=== PATIENT | female | born 1955 | race Caucasian/White ===

== ENCOUNTER 2020-04-03 08:44 | Outpatient (REF) | payer MEDICARE, OTHER, SELFPAY ==
--- NOTE | 2020-04-03 | PFT_ITS ---
Forced vital capacity is moderately reduced. FEV1 and [id number] and MVV are markedly reduced. Post bronchodilator therapy, there is a significant improvement in all flow volumes. Total lung capacity and residual volume are markedly increased suggesting air trapping. Diffusion capacity normal. CONCLUSION: Severe obstructive airway disorder. With partial reversibility after bronchodilator therapy. These findings are consistent with bronchial asthma. Clinical correlation is recommended. MD MILAN Rodriguez/MODL / [id number]
== END 2020-04-03 08:45 | disposition home or self-care (01) ==
LOC: HO.RESP 08:44
PROVIDERS: Visit Provider Surgery
DX: Z01.818 Encounter for other preprocedural examination (principal); J45.41 Moderate persistent asthma with (acute) exacerbation
CPT/HCPCS: 94060; 94727; 94729

== ENCOUNTER → 2020-04-15 08:18 | Outpatient (BNVA) | payer MEDICARE, OTHER, SELFPAY | PROVIDERS: PCP Nurse Practitioner Family; Visit Provider Dietitian, Registered | DX: Z76.89 Persons encountering health services in other specified circumstances (principal) ==

== ENCOUNTER → 2020-04-22 09:37 | Outpatient (BNVA) | payer MEDICARE, OTHER, SELFPAY | PROVIDERS: PCP Nurse Practitioner Family; Referring Provider Family Medicine Geriatric Medicine; Visit Provider Surgery | DX: Z76.89 Persons encountering health services in other specified circumstances (principal) ==

== ENCOUNTER → 2020-05-06 08:08 | Outpatient (BNVA) | payer MEDICARE, OTHER, SELFPAY | PROVIDERS: PCP Internal Medicine; Visit Provider Dietitian, Registered | DX: Z76.89 Persons encountering health services in other specified circumstances (principal) ==

== ENCOUNTER → 2020-05-09 07:19 | Outpatient (BNVA) | payer MEDICARE, OTHER, SELFPAY | PROVIDERS: Visit Provider Surgery | DX: Z01.818 Encounter for other preprocedural examination (principal); E66.9 Obesity, unspecified; Z68.37 Body mass index [BMI] 37.0-37.9, adult; K21.9 Gastro-esophageal reflux disease without esophagitis; I10 Essential (primary) hypertension | CPT/HCPCS: 99212 ==

== ENCOUNTER 2020-05-10 09:00 | Outpatient (REF) | payer MEDICARE, OTHER, SELFPAY ==
[2020-05-10 09:51] LABS: MANUAL DIFF FLAG NO
[2020-05-10 09:52] LABS: Basophils Percent Auto 0.3 % (0-2); Eosinophils Absolute Auto 0.1 X10*3/uL (0.0-0.4); Eosinophils Percent Auto 1.8 % (0-4); Hemoglobin 13.1 g/dl (12.0-16.0); Imm Gran Abs Auto 0.01 X10*3/uL (0.00-0.03); Imm Gran Pct Auto 0.2 % (0.0-0.4); Lymphocytes Absolute Auto 0.7 X10*3/uL (1.2-4.9); Lymphocytes Percent Auto 11.7 % (20-40); Mean Corpuscular HGB Conc 32.8 g/dl (31.0-35.0); Mean Corpuscular Hemoglobin 29.2 pg (27.0-33.0); Mean Corpuscular Volume 89.1 fL (80-98); Mean Platelet Volume 10.4 fL (9.4-12.3); Monocytes Absolute Auto 0.6 X10*3/uL (0.1-1.2); Monocytes Percent Auto 10.1 % (2-11); Neutrophils Absolute Auto 4.5 X10*3/uL (2.0-8.3); Neutrophils Percent Auto 75.9 % (45-73); Platelet Count 195 X10*3/uL (160-400); Red Blood Count 4.49 X10*6/uL (4.20-5.50); Red Cell Distribution Width 12.8 % (11.0-16.0)
[2020-05-10 10:10] LABS: INTERNATIONAL NORM RATIO 1.1 (0.9-1.1); Prothrombin Time 13.6 SEC (10.8-13.0)
[2020-05-10 10:13] LABS: Partial Thromboplastin Time 32.5 SEC (24.1-38.0)
[2020-05-10 10:15] LABS: Alanine Aminotransferase 22 U/L (0-31); Albumin Level 4.5 g/dL (3.5-5.0); Alkaline Phosphatase 77 U/L (39-117); Anion Gap 14 (12-20); Aspartate Amino Transferase 23 U/L (5-31); Bilirubin Total 0.8 mg/dL (0.0-1.0); Blood Urea Nitrogen 10 mg/dL (9-16); C Reactive Protein 0.12 mg/dL (< or = 0.50); Calcium 9.7 mg/dL (8.4-10.2); Carbon Dioxide 29 mmol/L (22-29); Chloride 101 mmol/L (96-108); Cholesterol 208 mg/dL; Estimated Glomerular Filt Rate > 60; Glucose Random 101 mg/dL (60-115); HDL Cholesterol 43 mg/dL; LDL Cholesterol Calculated 148 mg/dl; Potassium 3.9 mmol/l (3.3-5.1); Sodium 140 mmol/L (135-145); Total Protein 7.6 g/dL (6.5-8.0); Triglycerides 89 mg/dL
[2020-05-10 10:27] LABS: Estimated Average Glucose 100 mg/dL; Hemoglobin A1c % 5.1 %
[2020-05-12 19:11] LABS: Calcium (PTHI) 9.9 mg/dL (8.6-10.4); PTHI 34 pg/mL (14-64)
== END 2020-05-10 09:01 | disposition home or self-care (01) ==
LOC: HO.LAB 09:00
PROVIDERS: Visit Provider Surgery
DX: E66.9 Obesity, unspecified (principal); I10 Essential (primary) hypertension; K21.9 Gastro-esophageal reflux disease without esophagitis; Z68.38 Body mass index [BMI] 38.0-38.9, adult
CPT/HCPCS: 36415; 80053; 80061; 83036; 83525; 83970; 84443; 85025; 85610; 85730; 86140

== ENCOUNTER 2020-05-15 06:27 | Inpatient (IN) | payer MEDICARE, OTHER, SELFPAY ==
[2020-05-09 10:19] VITALS: BMI 37.2
--- NOTE | 2020-05-14 12:00 | HO.ANESPROP2 ---
Documented by User: Virginia Prasad 05/14/20 12:03 HPI - Anesthesia Eval Consult details Narrative: 64yo F for Gastrectomy Sleeve,EGD,Poss Diaphragmatic Hernia,Poss Ventral hernia,Poss Open PMFSH Past Medical History Medical History Bronchial asthma Depression GERD (gastroesophageal reflux disease) Hx of hepatitis C Hypertension Obesity Family History Family History Father No problems noted. Mother No problems noted. Brother No problems noted. Brother No problems noted. Brother No problems noted. Sister No problems noted. Surgical History Surgical History Hx of colonoscopy S/P oophorectomy S/P rotator cuff surgery S/P SAMMIE (total abdominal hysterectomy) S/P tonsillectomy Social History Social History Are you a primary director of primary care to a significant other at home: No Do you presently have visiting nurse or other home services: No Alcohol intake: current Alcohol intake frequency: holidays/special occasions only Smoking Status: Former smoker Smoking Quit Date: 2015 Use of substances other than those prescribed or required for medical reasons: Yes Substance Use Type: Marijuana Substance Use Frequency: Weekly Have you been hit, kicked, punched, or otherwise hurt by someone within the past year? If so, by whom?: No Spiritual Healthcare Practices: none Baptism Healthcare Practices: none Cultural Healthcare Practices: none Advance Directives: No Advance Directives Information Provided: No Advance Directives on File: No Recently lost weight without trying: No Meds Allergies Allergy/AdvReac Type Severity Reaction Status Date / Time hay Allergy Unknown unknown Uncoded 05/15/20 06:14 doxycycline cream AdvReac Itching Uncoded 05/15/20 06:15 Home Medications Medication Instructions Recorded Confirmed Type famotidine 20 mg tablet 20 mg PO BID 05/01/20 05/09/20 History fluoxetine 40 mg capsule 40 mg PO DAILY 05/01/20 05/09/20 History lisinopril 10 mg tablet 10 mg PO DAILY 05/01/20 05/09/20 History albuterol sulfate 2 puff PO QID PRN 05/09/20 05/09/20 History calcium carbonate-vitamin D3 1 cap PO BID 05/09/20 05/09/20 History [Calcium 600 + D(3)] Exam Exam Date and Time: May 14, 2020 1200 Height,Weight and Vital Signs: Height 5 ft 1 in Weight 89.358 kg Pertinent Lab Results Pertinent Lab Results: Laboratory Tests 05/10/20 09:36 Blood Type A Positive Antibody Screen NEGATIVE Laboratory Tests 05/10/20 05/10/20 05/10/20 09:36 09:36 09:36 WBC 6.0 Hgb 13.1 Hct 40.0 Plt Count 195 PT 13.6 H INR 1.1 APTT 32.5 Sodium 140 Potassium 3.9 Chloride 101 Carbon Dioxide 29 BUN 10 Creatinine 0.71 Hemoglobin A1c % 05/10/20 09:36 WBC Hgb Hct Plt Count PT INR APTT Sodium Potassium Chloride Carbon Dioxide BUN Creatinine Hemoglobin A1c % 5.1 Narrative Narrative: PFT 03/2020: Severe obstructive airway disorder. With partial reversibility after bronchodilator therapy. These findings are consistent with bronchial asthma. Clinical correlation is recommended. EKG 02/2020: NSR@65 ECHO 02/2020: Essentially nml study Documented by User: Ricardo Lane 05/15/20 07:59 PMFSH Past Medical History Medical History Bronchial asthma Depression GERD (gastroesophageal reflux disease) Hx of hepatitis C Hypertension Obesity Family History Family History Father No problems noted. Mother No problems noted. Brother No problems noted. Brother No problems noted. Brother No problems noted. Sister No problems noted. Surgical History Surgical History Hx of colonoscopy S/P oophorectomy S/P rotator cuff surgery S/P SAMMIE (total abdominal hysterectomy) S/P tonsillectomy Social History Social History Are you a primary director of primary care to a significant other at home: No Do you presently have visiting nurse or other home services: No Alcohol intake: current Alcohol intake frequency: holidays/special occasions only Smoking Status: Former smoker Smoking Quit Date: 2015 Use of substances other than those prescribed or required for medical reasons: Yes Substance Use Type: Marijuana Substance Use Frequency: Weekly Have you been hit, kicked, punched, or otherwise hurt by someone within the past year? If so, by whom?: No Spiritual Healthcare Practices: none Baptism Healthcare Practices: none Cultural Healthcare Practices: none Advance Directives: No Advance Directives Information Provided: No Advance Directives on File: No Recently lost weight without trying: No Meds Allergies Allergy/AdvReac Type Severity Reaction Status Date / Time hay Allergy Unknown unknown Uncoded 05/15/20 06:14 doxycycline cream AdvReac Itching Uncoded 05/15/20 06:15 Home Medications Medication Instructions Recorded Confirmed Type famotidine 20 mg tablet 20 mg PO BID 05/01/20 05/09/20 History fluoxetine 40 mg capsule 40 mg PO DAILY 05/01/20 05/09/20 History lisinopril 10 mg tablet 10 mg PO DAILY 05/01/20 05/09/20 History albuterol sulfate 2 puff PO QID PRN 05/09/20 05/09/20 History calcium carbonate-vitamin D3 1 cap PO BID 05/09/20 05/09/20 History [Calcium 600 + D(3)] Exam Airway Mallampati Class: III TM Dist: >3cm Neck ROM: Full Denture: Upper Loose/Missing/Broken Teeth: No Heart: [id number] Lungs: cta b/l Assessment and Plan Assessment Anesthesia Assessment: Anesthesia Plan Discussed and Chart Reviewed Final Anesthetic Review NPO: Yes ASA Class: III Final Preanesthetic Review: No Changes in Pt Med Stat, Meds/Allgs Chart Reviewed, Consent Obtained/Reviewed and Anes Risks/Benef Reviewed Patient Risk: Low Procedure Risk: Low Assessment/Block/Sedation in SS: Assess/Block/Sedation-SS Anesthetic Plan Anesthetic Plan: GA Disposition: Standard PACU
[2020-05-15] VITALS (19 sets, daily range): BP systolic 113–156; BP diastolic 56–83; PULSE 73–96; RESP 14–20; TEMP 36.5–37.1; O2SAT 92–98
[2020-05-15 06:50] LABS: COVID-19 Test Negative (Negative); IDNOW Serial# 9DD0AD1C
[2020-05-15] MEDS: Lactated Ringers 1,000 ML 100 ML IVCONT (06:56)
--- NOTE | 2020-05-15 07:34 | MHC.SHP ---
Pre-Procedural Eval Section A The patient is an INPATIENT: Yes The History & Physical has been completed within 30 days and I have reviewed it.: Yes Section B Chief Complaint: Obesity/POST OP SLEEVE GASTRECTOMY Allergies: Allergies Allergy/AdvReac Type Severity Reaction Status Date / Time hay Allergy Unknown unknown Uncoded 05/15/20 06:14 doxycycline cream AdvReac Itching Uncoded 05/15/20 06:15 Review of Systems Sugical H&P ROS: Negative: Constitution, Cardiovascular, Respiratory, Neurological, Psychiatric, Hem-Onc, Allergic/Immunologic, Gastrointestinal, Genitourinary, Musculoskeletal, Integumentary, Endocrine and Eyes/Ears/Nose/Throat Exam Surgical H&P Exam: Normal: HEENT, Normal: Heart, Normal: Lungs, Normal: Extremities, Normal: Abdomen, Normal: Skin and Normal: Neurological Plan Diagnosis/Plan: Unchanged Patient has been examined and remains a candidate for the planned procedure
[2020-05-15] MEDS: ceFAZolin Sodium/Dextrose,Iso 2 GM/50 ML PIGGYBACK IV ×2 (07:39→13:45)
[2020-05-15] MEDS: Famotidine/PF 20 MG/2 ML VIAL IVPUSH ×2 (11:05→20:43)
--- NOTE | 2020-05-15 11:24 | PM.OP ---
Brief Operative Note Date of Service: 05/15/20 Pre-op diagnosis: Severe obesity with a BMI of 37.3 kg/m2 and associated comorbidities. Post-op diagnosis: same (moderate diaphragmatic hernia and adhesions) Procedure: INITIAL PATIENT BMI ON PRESENTATION AT OUR OFFICE: 40.78 kg/m2 LAST BMI BEFORE SURGERY: 37.3 kg/m2 COMORBIDITIES: asthma, GERD, liver steatosis, depression, Hepatitis C on remission, liver fibrosis The patient participated in an intensive weekly lifestyle intervention and exercise program during which the patient has lost between the initial office visit and the last preoperative visit 22lbs, or 10% of initial actual body weight. The patient met the BMI-criteria for bariatric surgery based on the BMI on initial presentation. The patient should not be penalized for achieving such weight loss because it is not sustainable long-term without surgical intervention and it was achieved in preparation for bariatric surgery under my direction and based on my published research ([email or web address] and [email or web address]) that a 10% preoperative weight loss improves long-term weight loss after surgery and reduces perioperative complications. Insurance carriers such as [facility] have endorsed my recommendations and have included in their policies criteria to include a 10% preoperative weight loss requirement. PROCEDURE: Esophago-gastroscopy, laparoscopic repair of incarcerated diaphragmatic hernia, laparoscopic lysis of adhesions, laparoscopic sleeve gastrectomy and laparoscopic gastropexy INDICATIONS: This is a 64 year-old female who was electively scheduled for laparoscopic, possibly open sleeve gastrectomy. The risks and complications of the procedure were discussed with the patient in advance, particularly the possibility of ; pulmonary embolism; staple line leak; bleeding; GERD; cardiac, pulmonary, or renal complications; as well as long-term problems such as insufficient weight loss, vitamin deficiency, strictures, or ulcers. The patient understood all the risks, and was in agreement to proceed with surgery. DESCRIPTION OF PROCEDURE: After informed consent was obtained from the patient, the patient was given preoperative antibiotics, and was transferred to the operating room. After successful induction of general anesthesia, pneumatic compressive devices were placed on both lower extremities. An upper endoscopy was performed next. The oropharynx and esophagus appeared to be within normal limits. There was a diaphragmatic hernia present of moderate size which was not reported at the preoperative upper GI. The stomach was entered. Then after all fluid and air were suctioned and the stomach was fully decompressed, the scope was withdrawn and secured in the mid esophagus. The patient was then prepped and draped in the usual sterile manner, and abdominal access was established at the right upper quadrant with the Reema technique. A 12 mm blunt port was inserted, and the abdomen was insufflated with CO2 to a pressure of 15 mmHg. Under direct visualization, additional ports were placed, specifically two 5 mm Versi-step ports to the left upper quadrant, and a 5 mm Versi-Step port to the right upper quadrant. 1% lidocained plan was used to infiltrate all port sites as well as all fascia defects. There were adhesions in the abdomen from previous hysterectomy involving the omentum and the anterior abdominal wall. Some of them were lysed with the ultrasonic device in order to get adequate free space to place our trocars. Following that, the patient was placed in a steep reverse Trendelenburg position. An additional 5 mm port was placed to the right flank for the Mediflex retractor that was used to retract the left lobe of the liver. The gastro-esophageal fat pad was opened with the ultrasonic device (Thunderbeat, Olympus) and the anterior esophagus and hiatus were exposed. The angle of His was opened with the ultrasonic device the fundus of the stomach from any diaphragmatic and splenic attachments. I then opened the gastrocolic ligament between the transverse colon and the greater curvature of the stomach with the ultrasonic device to enter the lesser sac and facilitate the ligation of the short gastric vessels. I started at a mid-point along the greater curvature and using the Thunderbeat, all short gastric vessels were divided all the way to the angle of His until the left homar was completely dissected at its entirety. I then divided the gastro-colic ligament distally to a distance of about 3-4 cm proximal to the esophagus. There was an obvious significant-sized hiatal hernia with the stomach incarcerated into the chest. I continued dissecting along the hiatus toward the left homar and the angle of His. I fully mobilized the fat pad that was incarcerated in the hernia. I then continued by dissecting even further into the posterior retro-esophageal space all the way to the angle of His. I continued to mobilize the esophagus into the mediastinum circumferentially. Both vagal nerves were seen and preserved. The right homar was also dissected completely. At that point, I was able to have at least 3 to 5 cm of esophagus into the abdomen. After I completely mobilized the esophagus from both the left and right homar and I had a good mobilization of the esophagus circumferentially, I closed the hernia defect with four interrupted #0 Surgidac sutures using the Endo Stitch device, two of which was placed posterior and two additional anterior to the esophagus. The stomach was then divided transversely with two Endo WILIAM-45 and three WILIAM-60 articulating purple loads using the garbs stapler and loads. Every effort was made that the gastric sleeve had a tubular shape and an even caliber throughout. Once the sleeve resection was completed, the staple line of the gastric sleeve was reinforced with Hemoclips. The resected stomach was retrieved without difficulty from the Reema port. A gastropexy was then performed in order to prevent postoperative GERD and partial gastric volvulus. Several interrupted 2.0 Surgidac sutures were placed between the sleeve's staple line and the previously divided greater omentum and gastro-colic ligament using the Endo-Stitch device. An upper endoscopy was performed. There was no narrowing at the GE junction. The scope was easily advanced all the way to the pylorus which was clearly visualized. There was no narrowing anywhere and the sleeve's caliber was even throughout. The sleeve's staple line was inspected and there was no evidence of ischemia, bleeding or dehiscence. At that point the gastroscope was withdrawn from the patient?s mouth while we were decompressing the bowel and the stomach from any remaining air. I looked into the lesser sac to see how the sleeve was situating and it was situating well. There was no bleeding from the staple line, spleen, or short gastric vessels. The Mediflex retractor was removed, and the undersurface of the liver was inspected and there was no bleeding. The patient was placed in supine position. I closed the fascial defect of the 12 mm port site with a figure of eight #1 Polysorb suture. Then 100 cc 0.25 % Marcaine plain with 10 mg of Dexamethasone were used to infiltrate the fascial closure as well as all skin incisions. At this point, the abdomen was deflated, all ports were removed under direct vision, and no bleeding was noted from any of the port sites. The skin incisions were irrigated with saline and were closed with 4-0 absorbable monofilament sutures. Steri-Strips and OpSites were used to cover all incisions. The patient was extubated and was transferred in stable condition to the recovery room for further care. I was present and performed all marcus parts of the procedure. Clovis was the environmental services assistant. There were no residents to assist with this case. Oh Ramirez MD, PhD, FACS Surgeon: Celio Ramirez MD Anesthesia: GETA, local and other (TAP block) Medical Territory Manager: Britt Brannon Estimated blood loss (mL): 10 IV fluids (mL): 3,000 Urine output (mL): 0 (No Coleman to record) Pathology: other (Stomach) Condition: stable Disposition: PACU
[2020-05-15 11:27] LABS: Hematocrit 38.8 % (37-47); Hemoglobin 12.7 g/dl (12.0-16.0)
[2020-05-15] MEDS: HYDROmorphone HCl 0.5 MG/0.5 ML SYRINGE 0.25 MG IVPUSH (11:30)
--- NOTE | 2020-05-15 11:31 | PM.PNGS ---
Subjective Subjective Interval history: Patient has mild incisional pain. Was able to ambulate and use the incentive spirometer. Physical Exam Vital Signs: Vital Signs: Last Vital Signs Temp 97.7 F 05/15/20 10:33 Pulse 83 05/15/20 11:16 Resp 18 05/15/20 11:16 BP 129/70 05/15/20 11:16 Pulse Ox 95 05/15/20 11:16 Body Mass Index 37.2 Resp: Effort & Inspection: normal respiratory effort Cardio: Jugular venous distension: no JVD Rate: regular rate GI: Inspection: Yes normal to inspection, Yes incision (clean, dry, intact) and Yes obesity Extrem: Right lower extremity: normal to inspection (no calf tenderness) Left lower extremity: normal to inspection (no calf tenderness) Progress Note: A&P Assessment and plan (1) Obesity: Status: Acute (2) BMI 37.0-37.9, adult: Status: Acute (3) GERD (gastroesophageal reflux disease): Status: Acute (4) Hypertension: Status: Acute (5) Depression: Status: Acute (6) Hx of hepatitis C: Problem details: S/P 1980 blood transfusion,treated Status: Acute (7) Liver fibrosis: Status: Acute (8) Intra-abdominal adhesions: Status: Acute (9) S/P laparoscopic sleeve gastrectomy: Status: Acute Assessment and Plan: 64 year old female was admitted 05/15/20 with morbid obesity and comorbidities. Problem 1: s/p laparoscopic sleeve gastrectomy, gastropexy, diaphragmatic hernia repair and lysis of adhesions Status: Doing well Plan: Check am labs, If OK, will continue phase 1 bariatric diet and discharge later today. (10) S/P repair of paraesophageal hernia: Status: Acute (11) Diaphragmatic hernia: Status: Acute Fall Risk Details Current Medications: Current Medications Generic Name Dose Route Start Last Admin Trade Name Freq PRN Reason Stop Dose Admin Albuterol Sulfate 2 puff 05/15/20 10:55 Albuterol Sulfate 90 Mcg 8 Gm Inhaler INHALE QID PRN wheezing Famotidine 20 mg 05/15/20 21:00 05/15/20 11:05 Famotidine/Pf 20 Mg/2 Ml Vial IVPUSH 20 mg BID CRICKET Administration Hydromorphone HCl 0.25 mg 05/15/20 10:49 Hydromorphone Hcl 0.5 Mg/0.5 Ml Syringe IVPUSH Q4H PRN Pain, Severe (Pain Scale 7-10) Lactated Ringer's 1,000 mls @ 100 mls/hr 05/15/20 06:15 05/15/20 06:56 Lr IVCONT 100 mls/hr .Q10H CRICKET Administration Lactated Ringer's 1,000 mls @ 150 mls/hr 05/15/20 11:00 Lr IVCONT .Q6H40M CRICKET Cefazolin Sodium/Dextrose 2 gm in 50 mls @ 100 mls/hr 05/15/20 16:55 Ancef IV 05/15/20 17:24 POSTOP ONE Acetaminophen 1,000 mg in 100 mls @ 16.7 mls/hr 05/15/20 11:00 Ofirmev IV .Q6H CRICKET Metoclopramide HCl 10 mg 05/15/20 10:49 Metoclopramide Hcl 10 Mg/2 Ml Vial IVPUSH Q6H PRN Nausea Ondansetron HCl 4 mg 05/15/20 11:00 Ondansetron Hcl 4 Mg/2 Ml Vial IVPUSH Q8H CRICKET Sodium Chloride 3 ml 05/15/20 16:00 0.9 % Sodium Chloride Flush 3 Ml Syringe IVFLUSH QSHIFT CRICKET Time Spent With Patient Time: Total time spent is greater than 50% in coordination of care (as documented) at patient's floor/unit and/or counseling patient: Time with patient: less than 15 minutes Procedures Abscess I/D Date of Service: 05/16/20
[2020-05-15 12:02] LABS: Anion Gap 17 (12-20); Blood Urea Nitrogen 11 mg/dL (9-16); Calcium 8.8 mg/dL (8.4-10.2); Carbon Dioxide 24 mmol/L (22-29); Chloride 100 mmol/L (96-108); Creatinine Clr Calc Pharmacy 70.4; Estimated Glomerular Filt Rate > 60; Glucose Random 112 mg/dL (60-115); Sodium 137 mmol/L (135-145)
[2020-05-15] MEDS: Lactated Ringers 1,000 ML 150 ML IVCONT ×2 (16:30→22:46)
[2020-05-15] MEDS: ondansetron HCL 4 MG/2 ML VIAL IVPUSH (18:08)
[2020-05-15] MEDS: 0.9 % Sodium Chloride Flush 3 ML SYRINGE IVFLUSH (20:56)
[2020-05-16 02:57] VITALS: BP 145/68; PULSE 74; RESP 18; TEMP 36.1; O2SAT 95
[2020-05-16] MEDS: ondansetron HCL 4 MG/2 ML VIAL IVPUSH (03:00)
[2020-05-16 05:17] LABS: Alanine Aminotransferase 75 U/L (0-31); Albumin Level 3.7 g/dL (3.5-5.0); Alkaline Phosphatase 60 U/L (39-117); Anion Gap 14 (12-20); Aspartate Amino Transferase 107 U/L (5-31); Bilirubin Total 0.4 mg/dL (0.0-1.0); Blood Urea Nitrogen 9 mg/dL (9-16); Calcium 8.6 mg/dL (8.4-10.2); Carbon Dioxide 25 mmol/L (22-29); Chloride 103 mmol/L (96-108); Creatinine Clr Calc Pharmacy 83.8; Estimated Glomerular Filt Rate > 60; Glucose Random 127 mg/dL (60-115); Potassium 4.6 mmol/l (3.3-5.1); Sodium 137 mmol/L (135-145); Total Protein 6.5 g/dL (6.5-8.0)
[2020-05-16] MEDS: Lactated Ringers 1,000 ML 150 ML IVCONT (05:29)
[2020-05-16 07:50] VITALS: BP 150/72; PULSE 77; RESP 18; TEMP 36.3; O2SAT 97
--- NOTE | 2020-05-16 09:55 | MHC.CLN ---
NURSE BIOLOGICAL SCIENTIST NOTE EECTRONIC MEDICAL RECORD REVIEWED PATIENT HAS BEEN DISCHARGED BEFORE BEING SEEN BY CASE MANAGEMENT , REVIEW ORF ORDERES SENT HOME NO SERVICES . PATIENT IS A S/P GASTRECTOMY SLEEVE, EGD HERNIA REPAIR , INDEPENDENT ANSD AMBULATORY
--- NOTE | 2020-05-16 13:29 | HO.POSTANES ---
Post Anesthesia Evaluation Post Anesthesia Evaluation Vital Signs: Vital Signs Temp Pulse Resp BP Pulse Ox 05/16/20 07:50 97.4 F 77 18 150/72 H 97 05/16/20 02:57 97 F 74 18 145/68 H 95 Anesthesia: General Endotracheal-GETA Mental Status: Awake Pain Control: Satisfactory Nausea/Vomiting: None Hydration: Adequate Anesthesia-Related Issues: No Anes. Related Issues
--- NOTE | 2020-06-18 13:20 | PM.DS ---
DS: Providers Provider Date of admission: 05/15/20 06:27 Primary care physician: Unknown Physician DS: Diagnosis Discharge Diagnosis (1) Obesity: Status: Acute (2) BMI 37.0-37.9, adult: Status: Acute (3) GERD (gastroesophageal reflux disease): Status: Acute (4) Hypertension: Status: Acute (5) Depression: Status: Acute (6) Hx of hepatitis C: Status: Acute Problem details: S/P 1980 blood transfusion,treated (7) Liver fibrosis: Status: Acute (8) Intra-abdominal adhesions: Status: Acute (9) S/P laparoscopic sleeve gastrectomy: Status: Acute (10) S/P repair of paraesophageal hernia: Status: Acute (11) Diaphragmatic hernia: Status: Acute DS: Medications Discharge Medications Home Medications: Home Medications Medication Instructions Recorded Confirmed fluoxetine 40 mg capsule 40 mg PO DAILY 05/01/20 05/09/20 lisinopril 10 mg tablet 10 mg PO DAILY 05/01/20 05/09/20 albuterol sulfate 2 puff PO QID PRN 05/09/20 05/09/20 Previous Rx's Medication Instructions Recorded ondansetron HCl 4 mg tablet 4 mg PO Q6H PRN #30 tab 05/09/20 pantoprazole 40 mg tablet,delayed 40 mg PO DAILY #30 tab 05/09/20 release sucralfate 100 mg/mL oral 10 ml PO BID #420 ml 05/09/20 suspension DS: Summary Time Spent with Patient Time attestation: Total time spent providing and/or coordinating discharge services: Physical Exam Vital Signs: Vital Signs: Last Vital Signs Temp 97.4 F 05/16/20 07:50 Pulse 77 05/16/20 07:50 Resp 18 05/16/20 07:50 BP 150/72 H 05/16/20 07:50 Pulse Ox 97 05/16/20 07:50 Body Mass Index 37.2 DS: Data Data Completed and Pending Completed studies during hospitalization [Text1]: Pending at discharge 05/15/20 08:43 Surgical [PTH] Routine Procedures Excision of Stomach, Percutaneous Endoscopic Approach, Vertical (05/15/20) Release Peritoneum, Percutaneous Approach (05/15/20) Repair Diaphragm, Percutaneous Endoscopic Approach (05/15/20) Labs on day of discharge: 05/10/20 09:36 Type and Screen Routine 05/15/20 06:04 Acetaminophen [Ofirmev] 1,000 mg in 100 ml IV PREOP Albuterol Sulfate (0.083%) [Ventolin (0.083%)] 2.5 mg INHALE PREOP ONE 05/15/20 06:11 COVID-19 ID NOW ([place]) Stat 05/15/20 06:15 Lactated Ringers [Lr] 1,000 ml IVCONT 100 mls/hr 05/15/20 06:32 Acetaminophen [Ofirmev] 1,000 mg in 100 ml IV As directed 05/15/20 06:59 Ketamine HCl/NS 50 mg IVPUSH .STK-MED ONE Lidocaine HCl 2 % MPF [Xylocaine 2 % MPF] 5 ml .ROUTE .STK-MED ONE Midazolam HCl/PF [Versed] 2 mg .ROUTE .STK-MED ONE Rocuronium George [Zemuron] 100 mg IV .STK-MED ONE propofoL [Diprivan] 200 mg IVPUSH .STK-MED ONE 05/15/20 07:00 dexAMETHasone Sod Phosphate/PF [Decadron] 10 mg .ROUTE .STK-MED ONE fentaNYL citrate/PF [Sublimaze] 50 mcg .ROUTE .STK-MED ONE 05/15/20 07:07 Bupivacaine MPF 0.25 % [Sensorcaine-MPF 0.25% 10 ML] 10 ml .ROUTE .STK-MED ONE Lidocaine HCl 1 % MPF [Xylocaine 1 % MPF] 5 ml .ROUTE .STK-MED ONE 05/15/20 07:30 Lactated Ringers [Lr] 1,000 ml IVCONT 999 mls/hr 05/15/20 07:35 ceFAZolin Sodium/Dextrose,Iso [Ancef] 2 gm in 50 ml IV PREOP 05/15/20 07:37 ceFAZolin Sodium/Dextrose,Iso [Ancef] 2 gm in 50 ml .ROUTE As directed 05/15/20 07:57 dexAMETHasone sod phosphate [Decadron] 4 mg .ROUTE .STK-MED ONE ondansetron HCL [Zofran] 4 mg .ROUTE .STK-MED ONE 05/15/20 08:06 Phenylephrine HCL 1,000 mcg IVPUSH .STK-MED ONE 05/15/20 08:34 HYDROmorphone HCl [Dilaudid] 2 mg .ROUTE .STK-MED ONE 05/15/20 08:43 Surgical [PTH] Routine 05/15/20 09:46 Sugammadex Sodium [Bridion] 200 mg IVPUSH .STK-MED ONE 05/15/20 Breakfast NPO Diet 05/15/20 10:49 Ambulate Q4H WHILE AWAKE Apply Abdominal Binder DIRECTED Compression Therapy QSHIFT Incentive Spirometry Q1HR WHILE AWAKE Intake and Output Q4HR Code Status Routine HYDROmorphone HCl [Dilaudid] 0.25 mg IVPUSH Q4H PRN Metoclopramide HCl [Reglan] 10 mg IVPUSH Q6H PRN 05/15/20 10:50 Vital Signs Q4H 05/15/20 10:55 Albuterol Sulfate [Ventolin] 2 puff INHALE QID PRN 05/15/20 10:56 Transfer Order Routine 05/15/20 11:00 Acetaminophen [Ofirmev] 1,000 mg in 100 ml IV 16.7 mls/hr Lactated Ringers [Lr] 1,000 ml IVCONT 150 mls/hr ondansetron HCL [Zofran] 4 mg IVPUSH Q8H 05/15/20 11:02 Famotidine/PF [Pepcid/PF] 20 mg IVPUSH .STK-MED ONE 05/15/20 11:15 Basic Metabolic Panel Stat Hemoglobin and Hematocrit Stat 05/15/20 11:26 HYDROmorphone HCl [Dilaudid] 0.5 mg .ROUTE .STK-MED ONE 05/15/20 13:37 ceFAZolin Sodium/Dextrose,Iso [Ancef] 2 gm in 50 ml .ROUTE As directed 05/15/20 15:27 Acetaminophen [Ofirmev] 1,000 mg in 100 ml IV As directed 05/15/20 16:00 0.9 % Sodium Chloride Flush [NS Flush] 3 ml IVFLUSH QSHIFT 05/15/20 16:55 ceFAZolin Sodium/Dextrose,Iso [Ancef] 2 gm in 50 ml IV POSTOP 05/15/20 21:00 Famotidine/PF [Pepcid/PF] 20 mg IVPUSH BID 05/16/20 04:26 Comprehensive Met. Panel DAILY@0500 Laboratory Last Values Hgb 12.7 g/dl (12.0-16.0) 05/15/20 11:15 Hct 38.8 % (37-47) 05/15/20 11:15 Sodium 137 mmol/L (135-145) 05/16/20 04:26 Potassium 4.6 mmol/l (3.3-5.1) 05/16/20 04:26 Chloride 103 mmol/L (96-108) 05/16/20 04:26 Carbon Dioxide 25 mmol/L (22-29) 05/16/20 04:26 Anion Gap 14 (12-20) 05/16/20 04:26 BUN 9 mg/dL (9-16) 05/16/20 04:26 Creatinine 0.68 mg/dL (0.5-1.4) 05/16/20 04:26 Estim Creat Clear Calc 83.8 05/16/20 04:26 Estimated GFR > 60 05/16/20 04:26 Random Glucose 127 mg/dL (60-115) H 05/16/20 04:26 Calcium 8.6 mg/dL (8.4-10.2) 05/16/20 04:26 Total Bilirubin 0.4 mg/dL (0.0-1.0) 05/16/20 04:26 AST 107 U/L (5-31) H 05/16/20 04:26 ALT 75 U/L (0-31) H 05/16/20 04:26 Alkaline Phosphatase 60 U/L (39-117) D 05/16/20 04:26 Total Protein 6.5 g/dL (6.5-8.0) 05/16/20 04:26 Albumin 3.7 g/dL (3.5-5.0) 05/16/20 04:26 COVID-19 ([facility]) Negative (Negative) 05/15/20 06:11 COVID-19 Clin Com See Note 05/15/20 06:11 Blood Type A Positive 05/10/20 09:36 Antibody Screen NEGATIVE 05/10/20 09:36 Discharge Plan Discharge Anticipated Discharge Date/Time: 05/16/20 12:00 Patient Disposition: Home, Self-Care Referrals: Physician,Unknown [Primary Care Provider] - Discharge Medications: Continued albuterol sulfate 90 mcg/actuation HFA aerosol inhaler 2 puff PO QID PRN (Reason: wheezing) RF: 0 lisinopril 10 mg tablet 10 mg PO DAILY RF: 0 fluoxetine 40 mg capsule 40 mg PO DAILY RF: 0 pantoprazole 40 mg tablet,delayed release (DR/EC) 40 mg PO DAILY Qty: 30 RF: 2 sucralfate 100 mg/mL suspension 10 ml PO BID Qty: 420 RF: 2 ondansetron HCl [Zofran] 4 mg tablet 4 mg PO Q6H PRN (Reason: nausea and vomiting) Qty: 30 RF: 0 Discontinued Calcium 600 + D(3) 600 mg calcium- 200 unit Capsule 1 cap PO BID RF: 0 famotidine 20 mg tablet 20 mg PO BID RF: 0 polyethylene glycol 3350 [Miralax] 17 gram powder in packet 17 g PO DAILY Qty: 14 RF: 0 Discharge Orders: Discharge Order (Routine); Ordered 05/16/20 Ordered By: Celio Ramirez Diet: other Activity on Discharge: No heavy lifting Discharge Date/Time: 05/16/20 09:00 Activity Restrictions/Additional Instructions: Discharge Instructions Please read the instructions below. While your treatment has been planned according to the most current medical practices available, unavoidable complications may occur if you don't follow all instructions carefully. Please call your doctor or come back to the emergency room should any new symptoms arise. You will receive a courtesy call from [facility] 24-48 hours after discharge. Your first post operative appointment will be within 1-2 weeks after your surgery. 1. Activity: no alcohol, illicit substances, sex, driving, intensive exercise, heavy lifting, or tub baths. You should not drive for one week, or more if you are still taking narcotic prescription pain medication. Avoid any strenuous activity, particularly heavy lifting, for 3 weeks. You can walk as much as you wish and climb stairs as needed. Make sure you walk many times during the day at home as blood clots can occur even as long as a month after surgery. Patients with sedentary jobs may return to work 7 days after surgery. 2. Diet: continue phase 1 for the rest of today (post operative day #1) and start phase 2 tomorrow morning as instructed. Do not advance to phase 3 (protein shakes) until you speak with Dr. Ramirez. 3. Dressing Change/Wound Care: Tthe small incisions on your abdomen are closed with stitches on the inside which will dissolve in 4-6 weeks. The incisions are protected with steri-strips (pieces of tape), gauze, and a waterproof transparent adhesive dressing. The dressing is waterproof and can be removed at your post operative appointment (might come off sooner than then). The steri strips will start to come off by themselves 7-10 days after surgery. You can leave the steri-strips alone until they come off on their own. If the incisions are tender, you may apply an ice pack for short intervals (no more than 20 minutes on, followed by at least 20 minutes off). Do not apply heat. Do not use creams, lotions, or topical antibiotics unless instructed to do so by your surgeon (these can cause infection or allergic reaction. 4. Fatigue: it is not uncommon to feel weak and tired the first few weeks after surgery. Your body is still recovering from the stresses of a major operation. The feeling of weakness will improve faster if you maintain an adequate amount of protein intake. 5. Nausea: narcotic pain medications are the most common cause for nausea. Other causes are the liquid protein shakes, drinking too fast or too much, any other medication, or vitamins, especially those that need to be crushed. Tell your doctor immediately if you feel that any of the above causes you nausea. 6. Medications/other medical conditions: Dr. Ramirez sent in several prescriptions to your pharmacy at your pre op appointment (pantoprazole, carafate, and ondansetron), and you will need to continuous pickling line pickler Children?s liquid Tylenol (which works better when taken every 4-6 hours for the first few days. Make sure to spread out your medications (taking too many at once can cause stomach upset after surgery) Do NOT take NSAIDS (non-steroidal anti-inflammatory drugs) or aspirin after surgery (ibuprofen, naproxen, Aleve, Advil, Motrin) Your surgeon will tell you which of your home medications you may resume and which you should stop after surgery Talk to your surgeon specifically if you take diuretics (water pills) such as Lasix or hydrochlorothiazide. They need close monitoring because they can dehydrate you. Don?t take them if you had persistent nausea, vomiting, temperature or if you were unable to drink at least 40 oz of liquids in 24 hours If you take oral medications for diabetes, it may be changed to insulin postoperatively. It controls your blood sugar better and is safer for this time If you have sleep apnea and you use a CPAP machine make sure to use it every night after surgery including after you?ve been discharged It is recommended that you make an appointment with your PCP, wind turbine machinist, group fitness assistant department head, and/or food assembler approximately one month after surgery to evaluate your health status and adjust any medications for diabetes or hypertension or therapies such as CPAP use Call your doctor if you experience any of the following: Temperature greater than 101 F Excessive abdominal pain (other than incisional pain) or swelling An unexpected reaction to medication Excessive bleeding Continued vomiting/nausea (nausea can be caused by narcotics, or drinking too fast/too much) Incisions Calf tenderness, leg swelling, chest pain, or difficulty breathing More than 4-5 large/watery bowel movements per day (some diarrhea is expected in the first weeks Discharge Summary Date of service: 05/16/20 Admitting diagnosis: obesity, Discharge diagnosis: s/p LSG, HH repair, intraoperative endoscopy Past surgical history: SAMMIE with bilateral oophorectomy and left salpingectomy (midline), open right salpingectomy (midline), re-exploration for bleeding 3 days later, tonsillectomy, Procedure: History of Present Illness: The patient is a 64 year-old lady with an initial body mass index of BMI kg/m2 and associated comorbidities as described previously. The patient had extensive work-up, lost LBS lb pre-operatively and was electively scheduled for laparoscopic, possible open, LSG. Risks and complications of the surgery were discussed with the patient in advance, particularly the possibility of , pulmonary embolism, anastomotic leak, bleeding, bowel injury, GERD, cardiac, renal or pulmonary complications. The patient understood all the risks and was in agreement with the surgical plan. Hospital Course: The patient underwent uneventful LSG the day of admission. Postoperatively, the patient was transferred to the surgical floor on a monitored bed. The patient was on IV Acetaminophen DILAUDID? for pain control. On the afternoon of POD# 0, the patient was started on 1 ounce of water or ice every half hour. During the first day, the patient did fairly well, having some incisional pain, but able to ambulate adequately and to tolerate liquids well. On POD#1, the patient was feeling well without nausea, vomiting, fevers, or tachycardia. The patient had some mild incisional pain. The abdomen was soft. They continued taking in 1 ounce of water every half hour. Since the patient was doing well on POD #1, we decided that the patient was ready to be discharged. The patient was given instructions to follow-up with me next week and to call my office for any fever over 101, persistent abdominal pain, nausea, vomiting, GERD, change in the color of the AMADO fluid, symptoms of DVT such as calf tenderness, or leg swelling, or pulmonary embolism such as chest pain or shortness of breath. The patient was also instructed to drink 40-60 ounces of liquids per day using the 1-ounce cups. The patient was given prescription for Tylenol for pain, Zofran prn for nausea, and pantoprazole and carafate. The patient was encouraged to ambulate and use the incentive spirometer. The patient was allowed to shower, but no baths, and encouraged to stay active at home. All of these instructions were given to the patient personally. All questions were answered and the patient understood all instructions. The instructions were given to the patient in print as well. Visit Report Forms: Patient Portal Discharge page Care Plan Goals: weight loss Health Concerns: None Plan of Treatment: weekly weight measurements
== END 2020-05-16 09:00 | disposition home or self-care (01) | DRG 620 ==
LOC: HO.SSSA 11:20 → HO.S3 15:40
PROVIDERS: Physician Assistant; Admitting Provider Surgery; Visit Provider Surgery
PROC: 0DB64Z3 Excision of Stomach, Percutaneous Endoscopic Approach, Vertical (ICD-10-PCS; CPT 43845; principal; 2020-05-15 07:30)
DX: E66.01 Morbid (severe) obesity due to excess calories (principal); K44.0 Diaphragmatic hernia with obstruction, without gangrene; Z68.37 Body mass index [BMI] 37.0-37.9, adult; K21.9 Gastro-esophageal reflux disease without esophagitis; K66.0 Peritoneal adhesions (postprocedural) (postinfection); K74.00 Hepatic fibrosis, unspecified; Z20.828 Contact with and (suspected) exposure to other viral communicable diseases; Z86.19 Personal history of other infectious and parasitic diseases; Z79.899 Other long term (current) drug therapy
CPT/HCPCS: 36415; 80048; 80053; 85014; 85018; 86850; 86900; 86901; 87635; 88307; 88342; 99024; A4649; J0131; J0690; J1100; J1170; J2250; J2370; J2405; J3010

== ENCOUNTER → 2020-05-21 07:40 | Outpatient (BNVA) | payer MEDICARE, OTHER, SELFPAY | PROVIDERS: Visit Provider Surgery | DX: E66.9 Obesity, unspecified (principal); Z68.34 Body mass index [BMI] 34.0-34.9, adult; Z98.84 Bariatric surgery status | CPT/HCPCS: 99212 ==

== ENCOUNTER → 2020-06-16 08:11 | Outpatient (BNVA) | payer MEDICARE, OTHER, SELFPAY | PROVIDERS: Visit Provider Surgery | DX: E66.9 Obesity, unspecified (principal); Z68.34 Body mass index [BMI] 34.0-34.9, adult | CPT/HCPCS: 99212 ==

== ENCOUNTER → 2020-07-14 08:15 | Outpatient (BNVA) | payer MEDICARE, OTHER, SELFPAY | PROVIDERS: Visit Provider Surgery | DX: E66.9 Obesity, unspecified (principal); Z68.33 Body mass index [BMI] 33.0-33.9, adult | CPT/HCPCS: 99212 ==

== ENCOUNTER → 2020-08-13 08:25 | Outpatient (BNVA) | payer MEDICARE, OTHER, SELFPAY | PROVIDERS: Visit Provider Surgery | DX: E66.9 Obesity, unspecified (principal); Z68.32 Body mass index [BMI] 32.0-32.9, adult | CPT/HCPCS: 99212 ==

== ENCOUNTER → 2020-09-12 08:34 | Outpatient (BNVA) | payer MEDICARE, OTHER, SELFPAY | PROVIDERS: Visit Provider Surgery | DX: E66.9 Obesity, unspecified (principal); Z68.31 Body mass index [BMI] 31.0-31.9, adult; Z71.3 Dietary counseling and surveillance | CPT/HCPCS: Q3014 ==

== ENCOUNTER → 2020-10-17 08:03 | Outpatient (BNVA) | payer MEDICARE, OTHER, SELFPAY | PROVIDERS: Visit Provider Surgery | DX: E66.3 Overweight (principal); Z68.28 Body mass index [BMI] 28.0-28.9, adult | CPT/HCPCS: Q3014 ==

== ENCOUNTER → 2020-11-21 08:23 | Outpatient (BNVA) | payer MEDICARE, OTHER, SELFPAY | PROVIDERS: Visit Provider Surgery | CPT/HCPCS: Q3014 ==

== ENCOUNTER 2023-09-20 11:28 | Outpatient (AMB) | payer MEDICARE, OTHER, SELFPAY ==
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
[2023-09-20 11:47] VITALS: BP 156/73; PULSE 79; TEMP 36.1; O2SAT 90; BMI 29.8
== END 2023-09-20 12:24 | disposition home or self-care (01) ==
PROVIDERS: Visit Provider Physician Assistant Surgical
DX: E66.3 Overweight (principal); Z68.29 Body mass index [BMI] 29.0-29.9, adult; Z90.3 Acquired absence of stomach [part of]; Z98.84 Bariatric surgery status
CPT/HCPCS: 99214

== ENCOUNTER → 2023-09-20 11:28 | Outpatient (BNVA) | payer MEDICARE, OTHER, SELFPAY | PROVIDERS: Visit Provider Physician Assistant Surgical | DX: E66.3 Overweight (principal); Z71.3 Dietary counseling and surveillance; Z98.84 Bariatric surgery status; Z68.29 Body mass index [BMI] 29.0-29.9, adult | CPT/HCPCS: 99212 ==